=== PATIENT | male | born 1945 | race Caucasian/White ===

== ENCOUNTER 2022-05-15 09:56 | Day surgery (SDC) | payer OTHER ==
[2022-05-13 14:44] LABS: Potassium 4.3 mmol/L (3.5-5.1)
--- NOTE | 2022-05-14 08:55 | EKG ---
Test Date: 2022-05-13 Test Time: 14:15:19 [employer]: FRANCISCO MEASUREMENT RESULTS: Intervals: Rate: 55 TN: 204 QRSD: 136 QT: 470 QTc: 449 [place]: P: 62 TN: 204 QRS: 39 T: -6 INTERPRETIVE STATEMENTS: Sinus bradycardia Right bundle branch block Abnormal ECG No previous ECG available for comparison Electronically Signed On 05-14-22 08:52:24 CDT by Eron Lowry
[2022-05-15] MEDS ORDERED: CEFAZOLIN SODIUM 1 GM/VIAL ONE (10:16)
[2022-05-15] MEDS ORDERED: Ringers Lactate 1,000 ML IV ONE ×3 (10:16→18:17)
[2022-05-15] MEDS ORDERED: ACETAMINOPHEN 500 MG TAB ONE (11:09)
[2022-05-15] MEDS ORDERED: CELECOXIB 100 MG CAPSULE ONE (11:09)
[2022-05-15] MEDS ORDERED: FENTANYL CITR 100 MCG/2 ML ONE ×2 (13:25→14:55)
[2022-05-15] MEDS ORDERED: ONDANSETRON 4 MG/2 ML VIAL ONE (13:25)
[2022-05-15] MEDS ORDERED: dexAMETHasone 10 MG/ML VIAL ONE (13:25)
[2022-05-15] MEDS ORDERED: LIDOCAINE 2% MPF 5 ML VIAL ONE (13:25)
[2022-05-15] MEDS ORDERED: propofoL 200 MG/20 ML VIAL IV ONE (13:25)
[2022-05-15] MEDS ORDERED: MIDAZOLAM HCL 2 MG/2 ML INJ ONE (13:25)
[2022-05-15] MEDS ORDERED: BUPIVACAINE 0.25% PF 30 ML VIAL ONE (13:26)
[2022-05-15] MEDS ORDERED: GLYCOPYRROLATE 0.2 MG/ML SYR ONE (13:58)
[2022-05-15] MEDS ORDERED: EPHEDRINE SULF 50 MG/ML VIAL ONE (14:17)
--- NOTE | 2022-05-15 15:35 | P.OP ---
Preoperative diagnosis: LEFT inguinal hernia Postoperative diagnosis: LEFT inguinal hernia Primary procedure: Open LEFT inguinal hernia repair with mesh Anesthesia: GETA + Local Estimated blood loss: <5cc Specimen: cord lipoma, hernia sack Findings: Large LEFT inguinal Pantaloon Hernia Complications: None Transferred to: Recovery Room Condition: Good
[2022-05-15] MEDS ORDERED: TAMSULOSIN 0.4 MG SR CAP PO ONE ×2 (18:07→18:21)
[2022-05-15] MEDS ORDERED: TAMSULOSIN 0.4 MG SR CAP ONE (18:16)
[2022-05-15 18:29] VITALS: BP 131/71; TEMP 97; O2SAT 98
[2022-05-15] MEDS ORDERED: TAMSULOSIN 0.4 MG SR CAP PO SCH (19:00)
--- NOTE | 2022-05-16 03:29 | OP ---
Date of Procedure: 05/15/2022 Surgeon: Kole Lindsey MD, Preoperative Diagnosis: Left inguinal hernia. Postoperative Diagnosis: Left inguinal hernia. Procedure Performed: Open left inguinal hernia repair with mesh. Anesthesia: General endotracheal plus local with 0.25% Marcaine. Estimated Blood Loss: Less than 5 cc. Specimen: Cord lipoma and hernia sac. Findings: Large left inguinal pantaloon double type hernia. Implants: Bard PerFix large plug and patch hernia repair. Complications: None. Disposition: The patient was transferred to recovery room in good condition. Procedure In Detail: After informed consent was obtained, the patient was prepped and draped in usua l sterile fashion. After adequate anesthesia was achieved, I dissected down through left inguinal in cision using a 15 blade down to subcutaneous tissues, I dissected the Camper's fat and Melisa fascia to expose the external oblique aponeurosis using electrocautery. The external oblique aponeurosis wa s opened using a 15 blade. I then opened it in its entirety, both medially and into the deep inguina l ring using Metzenbaum scissors. At this point, a large hernia was encountered. This was dissected free around the spermatic cord structures and . The spermatic cord and structures were sep arated and encircled with a [place] drain at this point and protected throughout the procedure. I th en dissected down to remove the hernia sac off the spermatic cord structures. Additionally, a cord l ipoma was appreciated and removed using electrocautery and tied off using a 2-0 silk tie at the exit of the spermatic cord from the preperitoneal space. The cord lipoma was sent off. The hernia sac wa s then dissected circumferentially around and partially removed. I then imbricated the hernia sac an d pushed in the preperitoneal space. I sized the defect using a large Bard plug and was brought into the preperitoneal space in a parachute type fashion using 2-0 PDS sutures in a circumferential fashi on securing the mesh in the preperitoneal space. The patient was positioned head up and Valsalva was performed. The hernia defect was eliminated completely. The entire hernia contents were approximat gustabo the size of an orange prior to reduction and placement of the mesh. At this point, I sized the p atch properly and trimmed it appropriately and placed it into the space and secured it to the pubic t ubercle medially and the medial lateral shelving edge of the inguinal ligament on the underside of th e inguinal ligament and the internal oblique aponeurosis. After this was secured, using interrupted 2-0 PDS sutures, the area was copiously irrigated and suctioned out and completely dried. At this po int, the external oblique aponeurosis was closed in a running fashion using a 3-0 Vicryl suture and d eep dermal plane was rinsed and then closed with also a 3-0 Vicryl suture in an interrupted fashion. Skin was closed with 4-0 Monocryl in a running fashion and Dermabond placed over top. The patient t olerated the procedure without any evidence of any complications and transferred to the PACU in good condition. All counts were correct at the end of the case. SOSA/LING Voice ID: [id number] Report ID: [id number]
== END 2022-05-15 18:31 | disposition home or self-care (01) ==
LOC: OR 09:56
PROVIDERS: ATTEND Surgery
PROC: 0YU60JZ Supplement Left Inguinal Region with Synthetic Substitute, Open Approach (ICD-10-PCS; principal; 2022-05-15 13:15)
DX: K40.90 Unilateral inguinal hernia, without obstruction or gangrene, not specified as recurrent (principal)
CPT/HCPCS: 93005; 80048; 36415; 49505; J2704; J2250; J3010 ×2; J1100; J7120 ×3; J2405; J0690; 88302